=== PATIENT | male | born 1980 | race Caucasian/White ===

== ENCOUNTER 2021-10-10 09:47 | Emergency (ER) | payer OTHER ==
[2021-10-10] MEDS ORDERED: GI Cocktail Oral Solution 30 ML PO ONE (10:11)
[2021-10-10] MEDS ORDERED: fentaNYL 50 MCG/ML SDV IVPUSH ONE (10:42)
[2021-10-10 10:47] LABS: CHLORIDE,CL 105 mmol/L (98-107); SODIUM,NA 143 mmol/L (136-145)
[2021-10-10 10:48] LABS: ANION GAP 13.7 mmol/L (5-15); ESTIMATED GFR > 60
== END 2021-10-10 12:15 | disposition home or self-care (01) ==
LOC: VM.ED 09:47
DX: R10.13 Epigastric pain (principal); R10.11 Right upper quadrant pain; R10.12 Left upper quadrant pain
CPT/HCPCS: 36415; 74019; 80053; 82150; 83690; 85025; 86140; 96374; 99284; A9270; J3010

== ENCOUNTER 2022-11-02 21:15 | Emergency (ER) | payer OTHER ==
[2022-11-02] MEDS ORDERED: Sodium Chloride 0.9% 10 ML Syringe FLUSH PRN (21:44)
[2022-11-02] MEDS ORDERED: Ondansetron 4 MG/2 ML SDV IVPUSH ONE (21:46)
[2022-11-02] MEDS ORDERED: HYDROmorphone 0.5 MG/0.5 ML Syringe IVPUSH ONE (21:46)
[2022-11-02 21:51] LABS: BASOPHILS PERCENT AUTO 0.5 % (0.2-1.2); EOSINOPHILS ABSOLUTE AUTO 0.3 x10^3/uL (0.0-0.5); EOSINOPHILS PERCENT AUTO 4.2 % (0.0-4.0); HEMATOCRIT 45.5 % (40.0-52.0); HEMOGLOBIN 15.6 g/dL (14.0-18.0); IMMATURE GRAN ABSOLUTE AUTO 0.01 x10^3/uL (0.00-0.07); LYMPHOCYTES PERCENT AUTO 33.8 % (25.0-50.0); MEAN CORPUSCULAR HEMOGLOBIN 30.6 pg (26.0-32.0); MEAN CORPUSCULAR HGB CONC 34.3 g/dL (32.0-36.0); MEAN CORPUSCULAR VOLUME 89.2 fL (78.0-93.0); MONOCYTES ABSOLUTE AUTO 0.6 x10^3/uL (0.0-0.8); MONOCYTES PERCENT AUTO 9.4 % (2.0-11.0); NEUTROPHILS ABSOLUTE AUTO 3.1 x10^3/uL (1.8-7.7); NEUTROPHILS PERCENT AUTO 51.9 % (50.0-80.0); PLATELET COUNT,PLT 158 x10^3/uL (130-400)
[2022-11-02] MEDS ORDERED: Sodium Chloride 0.9% 1,000 ML IV SCH (22:00)
[2022-11-02 22:13] LABS: A/G RATIO 1.33; ALANINE AMINOTRANSFERASE,ALT 56 U/L (16-63); ALKALINE PHOSPHATASE 80 U/L (46-116); AMYLASE 42 U/L (25-115); ASPARTATE AMNIOTRANSFERASE,AST 28 U/L (15-37); BILIRUBIN TOTAL 1.4 mg/dL (0.2-1.0); BLOOD UREA NITROGEN,BUN 10 mg/dL (7-18); C-REACTIVE PROTEIN 0.05 mg/dL (<=0.30); CALCIUM 8.6 mg/dL (8.5-10.1); CARBON DIOXIDE,CO2 28 mmol/L (21-32); CHLORIDE,CL 109 mmol/L (98-107); GLUCOSE RANDOM 111 mg/dL (70-99); LIPASE 43 U/L (19-71); MAGNESIUM 2.3 mg/dL (1.8-2.4); POTASSIUM,K 4.1 mmol/L (3.5-5.1); SODIUM,NA 146 mmol/L (136-145)
[2022-11-02 22:23] LABS: ANION GAP 13.1 mmol/L (5-15); ESTIMATED GFR 97 mL/min (>=60)
[2022-11-02] MEDS ORDERED: Take Home: Ondansetron 4 MG Tab.DIS, 5 Tab Pack PO ONE (23:00)
== END 2022-11-02 23:10 | disposition home or self-care (01) ==
LOC: VM.ED 21:15
DX: K80.20 Calculus of gallbladder without cholecystitis without obstruction (principal); I10 Essential (primary) hypertension; Z79.899 Other long term (current) drug therapy
CPT/HCPCS: 80053; 82150; 83690; 83735; 85025; 86140; 93005; 93010; 96361; 96374; 96375; 99284; 99284-25; J1170; J2405; J7030; Q0162

== ENCOUNTER 2022-12-29 22:32 | Emergency (ER) | payer OTHER ==
[2022-12-29] MEDS ORDERED: HYDROmorphone 1 MG/ML Syringe IVPUSH ONE (22:45)
[2022-12-29] MEDS ORDERED: Ondansetron 4 MG/2 ML SDV IVPUSH ONE (22:46)
[2022-12-29] MEDS ORDERED: Sodium Chloride 0.9% 10 ML Syringe FLUSH PRN (22:46)
[2022-12-29] MEDS ORDERED: Sodium Chloride 0.9% 1,000 ML IV SCH (23:00)
[2022-12-29 23:08] LABS: BASOPHILS ABSOLUTE AUTO 0.1 x10^3/uL (0.0-0.2); BASOPHILS PERCENT AUTO 0.7 % (0.2-1.2); EOSINOPHILS ABSOLUTE AUTO 0.1 x10^3/uL (0.0-0.5); EOSINOPHILS PERCENT AUTO 1.1 % (0.0-4.0); HEMATOCRIT 42.4 % (40.0-52.0); HEMOGLOBIN 15.6 g/dL (14.0-18.0); IMMATURE GRAN ABSOLUTE AUTO 0.02 x10^3/uL (0.00-0.07); LYMPHOCYTES ABSOLUTE AUTO 1.8 x10^3/uL (1.0-4.8); LYMPHOCYTES PERCENT AUTO 20.3 % (25.0-50.0); MEAN CORPUSCULAR HEMOGLOBIN 31.7 pg (26.0-32.0); MEAN CORPUSCULAR HGB CONC 36.8 g/dL (32.0-36.0); MEAN CORPUSCULAR VOLUME 86.2 fL (78.0-93.0); MONOCYTES ABSOLUTE AUTO 0.5 x10^3/uL (0.0-0.8); MONOCYTES PERCENT AUTO 6.1 % (2.0-11.0); NEUTROPHILS ABSOLUTE AUTO 6.2 x10^3/uL (1.8-7.7); NEUTROPHILS PERCENT AUTO 71.6 % (50.0-80.0); PLATELET COUNT,PLT 192 x10^3/uL (130-400); RED BLOOD CELL COUNT 4.92 x10^6/uL (4.5-6.0); WHITE BLOOD CELL COUNT,WBC 8.7 x10^3/uL (4.0-10.0)
[2022-12-29] MEDS ORDERED: HYDROmorphone 0.5 MG/0.5 ML Syringe IVPUSH ONE (23:10)
[2022-12-29] MEDS ORDERED: Ketorolac 15 MG/ML SDV IVPUSH ONE (23:10)
[2022-12-29 23:26] LABS: A/G RATIO 1.28; ALBUMIN 4.1 g/dL (3.4-5.0); BILIRUBIN TOTAL 1.3 mg/dL (0.2-1.0); C-REACTIVE PROTEIN 0.06 mg/dL (<=0.30); EST CRCL DRUG DOSING (CG) 116.19 mL/min; MAGNESIUM 2.2 mg/dL (1.8-2.4); POTASSIUM,K 3.8 mmol/L (3.5-5.1); PROTEIN TOTAL,TP 7.3 g/dL (6.4-8.2)
[2022-12-29 23:36] LABS: ANION GAP 17.8 mmol/L (5-15); CALCIUM 9.2 mg/dL (8.5-10.1)
[2022-12-29] MEDS ORDERED: Take Home: Acetaminophen/HYDROcodone 325-10 MG, 5 Tab Pack PO ONE (23:45)
[2022-12-29] MEDS ORDERED: Acetaminophen/HYDROcodone 325-10 MG Tab PO ONE (23:45)
[2022-12-29] MEDS ORDERED: Take Home: Ondansetron 4 MG Tab.DIS, 5 Tab Pack PO ONE (23:48)
== END 2022-12-30 00:02 | disposition home or self-care (01) ==
LOC: VM.ED 22:32
DX: K80.20 Calculus of gallbladder without cholecystitis without obstruction (principal); I10 Essential (primary) hypertension; Z79.899 Other long term (current) drug therapy; Z90.49 Acquired absence of other specified parts of digestive tract
CPT/HCPCS: 80053; 83690; 83735; 85025; 86140; 96361; 96374; 96375; 99284; 99284-25; A9270-GY; J1170; J1885; J2405; J7030; Q0162